=== PATIENT | male | born 1965 | race Hispanic/Latino ===

== ENCOUNTER → 2022-04-24 | Day surgery (SDC) | payer BC ==
[~2022-04-24] MED LIST: AMLODIPINE BESYL5 MG PO; ATORVASTATIN CA20 MG PO; CARVEDILOL12.5 MG PO; LIDOCAINE HCL 2% LOCAL INJ 5 ML SDV VIAL INJ ONE; LOSARTAN POTAS100 MG PO; MIDAZOLAM HCL 2 MG/2 ML VIAL ONE; PROPOFOL IV EMULSION 10 MG/ML 20 ML VIAL ONE; TRIAMTERENE-HCTZ1 EA PO
[2022-04-24 09:44] VITALS: BP 108/60
== END | disposition home or self-care (01) ==
LOC: OR 06:49
PROVIDERS: ATTEND Internal Medicine Gastroenterology
DX: Z12.11 Encounter for screening for malignant neoplasm of colon (principal); D12.4 Benign neoplasm of descending colon; K58.9 Irritable bowel syndrome, unspecified; K57.30 Diverticulosis of large intestine without perforation or abscess without bleeding; K64.8 Other hemorrhoids; G47.33 Obstructive sleep apnea (adult) (pediatric); R00.1 Bradycardia, unspecified; E66.01 Morbid (severe) obesity due to excess calories; I10 Essential (primary) hypertension; Z01.810 Encounter for preprocedural cardiovascular examination; Z79.899 Other long term (current) drug therapy; Z68.42 Body mass index [BMI] 45.0-49.9, adult; Z87.440 Personal history of urinary (tract) infections; Z80.0 Family history of malignant neoplasm of digestive organs
CPT/HCPCS: 45385; 88305; 93005; J2001; J2250; J2704; 45378